=== PATIENT | female | born 1985 | race Caucasian/White ===

== ENCOUNTER 2016-11-15 14:41 | Emergency (ER) | payer OTHER ==
[2016-11-15 14:56] VITALS: BP 143/91; PULSE 73; TEMP 98; O2SAT 98
[2016-11-15] MEDS ORDERED: Emtricitabine-Tenofovir 200 mg-300 mg Tab PO STA (15:11)
[2016-11-15 15:23] LABS: BASO % 0.5 % (0.0-2.0); EOS # 0.3 K/uL (0.0-0.7); EOS % 3.8 % (0.0-4.0); HEMATOCRIT 41.5 % (34.0-47.0); LYMPH % 32.5 % (20.0-40.0); MEAN CELL VOLUME 91.6 fL (81.0-99.0); MEAN CORPUSCULAR HEMOGLOBIN 30.3 pg (27.0-31.0); MEAN PLATELET VOLUME 9.3 fL (7.2-11.7); MONO # 0.6 K/uL (0.0-0.8); MONO % 6.5 % (0.0-10.0); RED CELL DISTRIBUTION WIDTH 13.1 % (11.5-14.5); WHITE BLOOD COUNT 9.2 K/uL (4.8-10.8)
[2016-11-15 15:40] LABS: RBC URINE 4 /hpf (0-3); URINE BILIRUBIN NEGATIVE (NEGATIVE); URINE BLOOD NEGATIVE (NEGATIVE); URINE COLOR Yellow (YELLOW); URINE GLUCOSE (UA) NORMAL (Normal); URINE KETONE NEGATIVE (NEGATIVE); URINE LEUKOCYTE ESTERASE NEG Leu/uL (Negative); URINE PROTEIN NEGATIVE (NEGATIVE); URINE UROBILINOGEN NORMAL mg/dL (0.2-1.0); WBC URINE 1 /hpf (0-5)
[2016-11-15 15:47] LABS: CHLORIDE 105 mmol/L (98-107)
[2016-11-15 15:48] LABS: POTASSIUM 3.5 mmol/L (3.6-5.2); SODIUM 141 mmol/L (132-148)
[2016-11-15 15:49] VITALS: RESP 18
[2016-11-15 15:50] LABS: ALB/GLOB RATIO 1.2 (1.0-2.1); ALKALINE PHOSPHATASE 87 U/L (38-126); ALT/SGPT 15 U/L (9-52); AMYLASE 89 U/L (30-110); AST/SGOT 20 U/L (14-36); BILIRUBIN,TOTAL 0.5 mg/dL (0.2-1.3); BLOOD UREA NITROGEN 8 mg/dL (7-17); CALCIUM 9.5 mg/dl (8.6-10.4); CARBON DIOXIDE 26 mmol/L (22-30); GFR AFRICAN-AMERICAN > 60; GLUCOSE,RANDOM 84 mg/dL (65-105); TOTAL PROTEIN 7.3 g/dL (6.3-8.3)
--- NOTE | 2016-11-15 15:50 | C.PDOC ---
History Of Present Illness 31 year old patient presents to the ED complaining of being stuck with a needle at work just prior to arrival. Patient works in the hospital. She was closing a butterfly needle when she pierced her fingertip. The source patient is being tested at this time. Patient's Tetanus is up to date. She denies any other complaints. Time Seen by Provider: 11/15/16 15:10 Chief Complaint (Nursing): Needle Stick History Per: Patient History/Exam Limitations: no limitations Onset/Duration Of Symptoms: Hrs (just prior to arrival) Severity: None Pain Scale Rating Of: 0 Recent travel outside of the [place]: No Past Medical History Reviewed: Historical Data, Nursing Documentation, Vital Signs Vital Signs: Last Vital Signs Temp 98.0 F 11/15/16 14:48 Pulse 73 11/15/16 14:48 Resp 18 11/15/16 15:48 BP 143/91 H 11/15/16 14:48 Pulse Ox 98 11/15/16 16:45 - Medical History PMH: Asthma Family History: States: Unknown Family Hx - Social History Hx Tobacco Use: Yes Hx Alcohol Use: Yes Hx Substance Use: No - Immunization History Hx Tetanus Toxoid Vaccination: Yes Hx Influenza Vaccination: No Hx Pneumococcal Vaccination: No Review Of Systems Except As Marked, All Systems Reviewed And Found Negative. Constitutional: Negative for: Fever Respiratory: Negative for: Shortness of Breath Gastrointestinal: Negative for: Nausea, Vomiting Skin: Positive for: Other (pierced skin with needle). Negative for: Rash, Bruising Physical Exam - Physical Exam Appears: Non-toxic, No Acute Distress Skin: Warm, Dry Head: Atraumatic, Normacephalic Neck: Normal ROM, Supple Chest: Symmetrical Cardiovascular: Rhythm Regular Respiratory: Normal Breath Sounds, No Rales, No Rhonchi, No Wheezing Extremity: Bilateral: Atraumatic Neurological/Psych: Oriented x3, Normal Speech, Normal Cognition Gait: Steady ED Course And Treatment - Laboratory Results Result Diagrams: 11/15/16 15:20 11/15/16 15:20 O2 Sat by Pulse Oximetry: 98 (room air) Pulse Ox Interpretation: Normal Progress Note: Plan: Labs, Tivicay, Truvada Disposition - [facility] - Disposition: HOME/ ROUTINE Disposition Time: 15:10 Condition: GOOD Additional Instructions: Thank you for letting us take care of you today. Your provider was Dr. Taveras. You were treated for needle exposure. The emergency medical care you received today was directed at your acute symptoms. If you were prescribed any medication, please fill it and take as directed. It may take several days for your symptoms to resolve. Return to the Emergency Department if your symptoms worsen, do not improve, or if you have any other problems. Please contact your doctor or call one of the physicians/clinics you have been referred to that are listed on the Patient Visit Information form that is included in your discharge packet. Bring any paperwork you were given at discharge with you along with any medications you are taking to your follow up visit. Our treatment cannot replace ongoing medical care by a primary care provider (PCP) outside of the emergency department. Thank you for allowing the [facility] team to be part of your care today. Follow up with [facility] in the morning. Prescriptions: Dolutegravir Sodium [Tivicay] 50 mg PO DAILY #3 tab Emtricitabine/Tenofovir Diso [Truvada 200 MG-300 MG] 1 tab PO DAILY #3 tab Instructions: Needle Stick Injuries (ED) - Clinical Impression Clinical Impression: Needle stick injury - Scribe Statement The provider has reviewed the documentation as recorded by the Scribe Linda Grullon Provider Attestation: All medical record entries made by the Scribe were at my direction and personally dictated by me. I have reviewed the chart and agree that the record accurately reflects my personal performance of the history, physical exam, medical decision making, and the department course for this patient. I have also personally directed, reviewed, and agree with the discharge instructions and disposition.
== END 2016-11-15 15:49 | disposition home or self-care (01) ==
LOC: C.ER 14:41
DX: S69.92XA Unspecified injury of left wrist, hand and finger(s), initial encounter (principal); W46.0XXA Contact with hypodermic needle, initial encounter; Y92.239 Unspecified place in hospital as the place of occurrence of the external cause; Y99.0 Civilian activity done for income or pay

== ENCOUNTER 2017-08-21 09:09 | Emergency (ER) | payer OTHER ==
[2017-08-21 09:09] VITALS: BMI 36.8
[2017-08-21 09:21] VITALS: BP 159/94; PULSE 73; RESP 18; TEMP 98.5; O2SAT 98
[2017-08-21] MEDS ORDERED: Naproxen 550 mg Tab PO STA (09:49)
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
[2017-08-21] MEDS ORDERED: Naproxen 550 mg Tab PO ONE (10:11)
== END 2017-08-21 10:58 | disposition home or self-care (01) ==
LOC: C.ER 09:09
DX: M54.9 Dorsalgia, unspecified (principal); M54.2 Cervicalgia; V79.50XA Passenger on bus injured in collision with unspecified motor vehicles in traffic accident, initial encounter

== ENCOUNTER 2018-06-29 11:41 | Emergency (ER) | payer BC, OTHER ==
[2018-06-29 11:41] VITALS: BMI 36.8
[2018-06-29 11:47] VITALS: RESP 18
--- NOTE | 2018-06-29 12:05 | C.PDOC ---
History Of Present Illness 33 y/o female pt with PSHx tubal ligation and PMHx of asthma presents to the ER c/o localized RUQ abdominal pain for x2 days. Associated sx includes diarrhea and pain exacerbates with movement. Pt denies nausea, fever, chills, cough, running nose, dysuria and hematuria. Pt currently is on her menstrual cycle and is UTD with her flu shot. Time Seen by Provider: 06/29/18 11:50 Chief Complaint (Nursing): Abdominal Pain History Per: Patient History/Exam Limitations: no limitations Onset/Duration Of Symptoms: Days (x2) Current Symptoms Are (Timing): Still Present Location Of Pain/Discomfort: RUQ Radiation Of Pain To:: None Exacerbating Factors: Movement Past Medical History Reviewed: Historical Data, Nursing Documentation, Vital Signs Vital Signs: Last Vital Signs Temp 98.1 F 06/29/18 11:44 Pulse 93 H 06/29/18 11:44 Resp 18 06/29/18 11:44 BP 155/89 H 06/29/18 11:44 Pulse Ox 100 06/29/18 11:44 - Medical History PMH: Asthma Family History: States: Unknown Family Hx - Social History Hx Tobacco Use: Yes Hx Alcohol Use: Yes Hx Substance Use: No - Immunization History Hx Tetanus Toxoid Vaccination: Yes Hx Influenza Vaccination: Yes Hx Pneumococcal Vaccination: No Review Of Systems Except As Marked, All Systems Reviewed And Found Negative. Constitutional: Negative for: Fever, Chills ENT: Negative for: Nose Discharge Respiratory: Negative for: Cough Gastrointestinal: Positive for: Abdominal Pain (RUQ), Diarrhea. Negative for: Nausea Genitourinary: Negative for: Dysuria, Hematuria Physical Exam - Physical Exam Appears: Non-toxic, No Acute Distress Skin: Warm, Dry Head: Normacephalic Eye(s): bilateral: Normal Inspection Chest: Symmetrical Cardiovascular: Rhythm Regular Respiratory: Normal Breath Sounds, No Rales, No Rhonchi, No Wheezing Gastrointestinal/Abdominal: Soft, No Tenderness, Other (point tenderness to R lateral low rib; obese ) Back: No CVA Tenderness Extremity: Normal ROM (x4), No Pedal Edema, No Calf Tenderness, No Deformity, No Swelling Neurological/Psych: Oriented x3, Normal Speech ED Course And Treatment O2 Sat by Pulse Oximetry: 100 (RA) Pulse Ox Interpretation: Normal - CT Scan/US CAT A/P Other Rad Studies (CT/US): Read By Radiologist, Radiology Report Reviewed CT/US Interpretation: IMPRESSION: Mild anterior urinary bladder wall thickening; correlate with urinalysis to exclude possibility of cystitis. No evidence of hydronephrosis or obstructing renal/ureteral calculus. The appendix appears within normal limits of caliber. No secondary signs of acute appendicitis. Fat containing umbilical hernia. Medical Decision Making Medical Decision Making: Plans: -- U-preg -- UA -- Flexeril -- motrin -- tylenol Reevaluation: Urinalysis showed small amount of blood, possibly due to menstruation CAT A/P ordered.No presence of renal calculi. Patient feels better following medications. Dx: musculoskeletal pain Disposition Counseled Patient/Family Regarding: Studies Performed, Diagnosis, Need For Followup, Rx Given - Disposition Referrals: [facility] [Outside] Disposition: HOME/ ROUTINE Disposition Time: 16:00 Condition: STABLE Prescriptions: Cyclobenzaprine [Cyclobenzaprine HCl] 10 mg PO TID #15 tab Ibuprofen [Motrin] 600 mg PO TID #15 tab Instructions: Muscle and Bone Pain (DC) Forms: [employer] Connect (Yi), General Discharge Instructions - POA Present On Arrival: None - Clinical Impression Clinical Impression: Musculoskeletal pain - Scribe Statement The provider has reviewed the documentation as recorded by the [employer] Provider Attestation: All medical record entries made by the Scribe were at my direction and personally dictated by me. I have reviewed the chart and agree that the record accurately reflects my personal performance of the history, physical exam, medical decision making, and the department course for this patient. I have also personally directed, reviewed, and agree with the discharge instructions and disposition.
[2018-06-29 12:46] LABS: HCG,QUALITATIVE URINE NEGATIVE (NEGATIVE)
[2018-06-29 12:57] LABS: SQUAMOUS EPITHIAL 2 /hpf (0-5); URINE BACTERIA RARE (<OCC); URINE BILIRUBIN NEGATIVE (NEGATIVE); URINE BLOOD 3+ (NEGATIVE); URINE CLARITY Hazy (Clear); URINE COLOR Amber (YELLOW); URINE GLUCOSE (UA) NORMAL (Normal); URINE LEUKOCYTE ESTERASE NEG Leu/uL (Negative); URINE PROTEIN 1+ mg/dL (NEGATIVE); URINE UROBILINOGEN NORMAL mg/dL (0.2-1.0)
[2018-06-29] MEDS ORDERED: Sodium Chloride 0.9% 1,000 ML IV ONE (14:12)
[2018-06-29] MEDS ORDERED: Sodium Chloride 0.9% 1,000 ML ONE (14:23)
--- NOTE | 2018-06-29 15:22 | CT ---
PROCEDURE: CT Abdomen and Pelvis without Oral or IV contrast. HISTORY: abd pain COMPARISON: None available. TECHNIQUE: Contiguous axial images of the abdomen and pelvis. No oral or IV contrast administered. Coronal and Sagittal reformats generated and reviewed. Radiation dose: Total exam DLP = 1139.31 mGy-cm. This CT exam was performed using one or more of the following dose reduction techniques: Automated exposure control, adjustment of the mA and/or kV according to patient size, and/or use of iterative reconstruction technique. FINDINGS: There is limited evaluation of the solid organs without the administration of IV contrast. LOWER THORAX: No visible consolidation, pleural effusion, or pneumothorax. LIVER: Unremarkable unenhanced appearance. GALLBLADDER AND BILE DUCTS: Unremarkable unenhanced appearance. PANCREAS: Unremarkable unenhanced appearance. SPLEEN: 9 mm probable splenule. Otherwise unremarkable unenhanced appearance. ADRENALS: Unremarkable unenhanced appearance. KIDNEYS AND URETERS: No hydronephrosis or obstructing renal calculus. BLADDER: Mild anterior urinary bladder wall thickening; correlate with urinalysis to exclude possibility of cystitis. REPRODUCTIVE: Uterus is present. APPENDIX: The appendix appears within normal limits of caliber. No secondary signs of acute appendicitis. BOWEL: The stomach is nondistended. Lack of oral contrast limits evaluation for bowel pathology. The bowel loops appear within normal limits of caliber without evidence of intestinal obstruction. PERITONEUM: No significant free fluid. No definite free air. LYMPH NODES: No bulky lymphadenopathy identified. VASCULATURE: No significant aortic atherosclerotic calcifications identified. No aortic aneurysm. BONES: No acute osseous abnormality is detected. OTHER FINDINGS: Small fat containing umbilical hernia. IMPRESSION: Mild anterior urinary bladder wall thickening; correlate with urinalysis to exclude possibility of cystitis. No evidence of hydronephrosis or obstructing renal/ureteral calculus. The appendix appears within normal limits of caliber. No secondary signs of acute appendicitis. Fat containing umbilical hernia.
[2018-06-29 15:52] VITALS: BP 119/88; PULSE 78; TEMP 98.8
[2018-06-29 16:02] VITALS: O2SAT 100
== END 2018-06-29 16:06 | disposition home or self-care (01) ==
LOC: C.ER 11:41
DX: M79.18 Myalgia, other site (principal)
CPT/HCPCS: 74176; 81001; 84703; 96360; 99284; J7030